=== PATIENT | female | born 1970 | race Caucasian/White ===

== ENCOUNTER 2023-08-15 12:09 | Outpatient (CLI) | payer MEDICAID, SELFPAY | END 2023-08-15 12:10 | disposition home or self-care (01) | PROVIDERS: PCP Orthopaedic Surgery; Visit Provider Family Medicine | DX: R20.2 Paresthesia of skin (principal) | CPT/HCPCS: 82607; 83036 ==

== ENCOUNTER 2023-09-03 13:24 | Emergency (ER) | payer MEDICAID, SELFPAY ==
[2023-09-03 13:29] VITALS: BP 153/71; PULSE 76; RESP 20; TEMP 36.4; O2SAT 97; BMI 40.9
--- NOTE | 2023-09-03 13:31 | XR_ITS ---
Patient: UNRULY ROSE Facility:?[facility] RIS Patient ID:?[id number] Site Patient ID:?[id number]. Site :?[id number] Study:?XRay-Extremity Left FOOT 3V-09/03/2023 2:39:29 PM Ordering Physician:BALA Final Report: INDICATION: Foot pain. COMPARISON: None. TECHNIQUE: Left foot 3 views. FINDINGS: Mild hallux valgus. Diffuse soft tissue swelling about the mid and forefoot. Mildly displaced fracture at the base of the left 5th metatarsal. No other fractures. Degenerative changes at the IP joints. Normal hindfoot. Small plantar and Achilles spurs. IMPRESSION: 1. Soft tissue swelling about the midfoot. 2. Mildly displaced fracture at the base of the left 5th metatarsal. 3. No other fractures. Dictated by Rey Burger MD @ 09/03/2023 3:28:20 PM Signed by:?Rey Burger MD @09/03/2023 3:28:20 PM (Electronic Signature)
--- NOTE | 2023-09-03 13:32 | ED.GENADULT ---
HPI - General Adult General Chief complaint: Extremity Pain/Injury, Lower Stated complaint: left foot swollen, foot fracture Time Seen by Provider: 09/03/23 13:26 History of Present Illness HPI narrative: Patient is a 53-year-old female was on vacation and injured her left foot, [facility] and given a boot cam walker. The patient was told she had some type of forefoot fracture. I do not have access to that x-ray here. She reports that is been more swollen and painful to walk on with the boot. She has not use crutches. She she has a history of what is described as peripheral neuropathy on her chart, and paresthesias of both feet. She presents to ER for evaluation. She has concerns more swollen and painful. She does report that she thinks her injury happened about 5 weeks ago and she continues to have pain in this area the foot. Related Data Home Medications Medication Instructions Recorded Confirmed albuterol sulfate 90 mcg/actuation inhalation 08/15/23 08/15/23 aerosol inhaler atorvastatin 80 mg tablet 80 mg PO DAILY 08/15/23 08/15/23 cholecalciferol (vitamin D3) 25 25 mcg PO DAILY 08/15/23 08/15/23 mcg (1,000 unit) capsule cyanocobalamin (vitamin B-12) 250 mcg PO 08/15/23 08/15/23 mcg tablet epinephrine 0.3 mg/0.3 mL IM 08/15/23 08/15/23 injection, auto-injector lorazepam 1 mg tablet 1 mg PO BID 08/15/23 08/15/23 omeprazole 20 mg capsule,delayed 20 mg PO DAILY 08/15/23 08/15/23 release quetiapine 50 mg tablet 50 mg PO QPM 08/15/23 08/15/23 trazodone 50 mg tablet mg PO BID 08/15/23 08/15/23 venlafaxine 150 mg 150 mg PO DAILY 08/15/23 08/15/23 capsule,extended release 24 hr Previous Rx's Medication Instructions Recorded pregabalin 25 mg capsule 25 mg PO BID #30 caps 08/15/23 Allergies Allergy/AdvReac Type Severity Reaction Status Date / Time No Known Drug Allergies Allergy Verified 08/15/23 11:39 Review of Systems Status of ROS: Reports: 6 or more systems reviewed and unremarkable except as noted in History and below [facility] Medical History Peripheral neuropathy ?G62.9 - Polyneuropathy, unspecified (ICD-10) Paresthesia of both feet ?R20.2 - Paresthesia of skin (ICD-10) Social History Smoking Status: Current every day smoker How often do you have a drink containing alcohol: monthly or less AUDIT-C Alcohol total score: 1 Non-prescribed substance use: denies use Exam Narrative: Exam Narrative: Objective: Patient's vital signs show elevated blood pressure Her left lower extremity shows no pain in her knee or calf or leg or ankle, she does have pain over proximal 5th metatarsal and some soft tissue swelling over the dorsum of the foot No open wounds noted on the foot Peripheral perfusion is normal. Const: Vital Signs, click to edit/add: Vital Signs - 24 hr 09/03/23 13:29 Temperature 97.6 F Pulse Rate [Pulse Oximeter] 76 Respiratory Rate 20 Blood Pressure [Ri ght Upper Arm] 153/71 H Pulse Oximetry 97 Oxygen Delivery Me thod Room Air Course Vital Signs Vital signs: Initial Vital Signs Temperature 97.6 F 09/03/23 13:29 Temperature Source Temporal Artery Scan 09/03/23 13:29 Pulse Rate 76 09/03/23 13:29 Pulse Rhythm Regular 09/03/23 13:29 Respiratory Rate 20 09/03/23 13:29 Blood Pressure 153/71 H 09/03/23 13:29 Blood Pressure Mean 98 09/03/23 13:29 Blood Pressure Position Sitting 09/03/23 13:29 Pulse Oximetry 97 09/03/23 13:29 Oxygen Delivery Method Room Air 09/03/23 13:29 Vital Signs Temperature 97.6 F 09/03/23 13:29 Pulse Rate 76 09/03/23 13:29 Respiratory Rate 20 09/03/23 13:29 Blood Pressure 153/71 H 09/03/23 13:29 Pulse Oximetry 97 09/03/23 13:29 Oxygen Delivery Method Room Air 09/03/23 13:29 Temperature 97.6 F 09/03/23 13:29 Pulse Rate 76 09/03/23 13:29 Respiratory Rate 20 09/03/23 13:29 Blood Pressure 153/71 H 09/03/23 13:29 Pulse Oximetry 97 09/03/23 13:29 Oxygen Delivery Method Room Air 09/03/23 13:29 Medications Administered Medications: Discontinued Medications Generic Name Dose Route Start Last Admin Trade Name Antolin PRN Reason Stop Dose Admin Ibuprofen 800 mg 09/03/23 13:35 09/03/23 13:41 Ibuprofen 400 Mg Tablet PO 09/03/23 13:36 800 mg ONCE ONE Administration Medical Decision Making MDM Narrative Medical decision making narrative: 53-year-old female with a left forefoot fracture, will check a neck repeat x-ray. I think at this point the patient still needs to be nonweightbearing she can certainly wear the boot for compression and for support, but I think she needs to be on crutches as well. At elevation, ibuprofen, recheck with Ortho in the next few days would be recommended will see if we can set up an appointment for them. Addendum 2:41 p.m.: Patient's x-ray shows a proximal 5th metatarsal fracture, nondisplaced. The patient reports that she actually thinks she hurt her foot about 5 weeks ago. There appears to be a little bit a callus but I a with surprises and more fully healed. She continues to have pain. I think she needs to see Orthopedics to consider other options and probably definitive repair of her fracture. She will be in cam walker banana have her be nonweightbearing use crutches and follow-up with Ortho next 3 days will make an appointment, Advil or Tylenol as needed. And return to the ED if problems or concerns. Discharge Plan Discharge Clinical Impression: Acute foot pain, Closed fracture of fifth metatarsal bone Patient Disposition: Home, Self-Care Condition: Stable Additional Instructions: Ortho appointment scheduled in the next few days, nonweightbearing with your Cam walker on, crutches, elevation, return to ED sooner problems or concerns. DD of a fracture in her foot that needs orthopedic consultation. The number to the orthopedic department is [phone]. Activity Level: No Weight Bearing Discharge Diet: Heart Healthy (2 gm sodium, low fat) Prescriptions: No Action trazodone 50 mg tablet PO BID quetiapine 50 mg tablet 50 mg PO QPM lorazepam 1 mg tablet 1 mg PO BID cyanocobalamin (vitamin B-12) 250 mcg tablet PO venlafaxine 150 mg capsule,extended release 24hr 150 mg PO DAILY atorvastatin 80 mg tablet 80 mg PO DAILY omeprazole 20 mg capsule,delayed release(DR/EC) 20 mg PO DAILY cholecalciferol (vitamin D3) 25 mcg (1,000 unit) capsule 25 mcg PO DAILY epinephrine 0.3 mg/0.3 mL auto-injector IM albuterol sulfate 90 mcg/actuation HFA aerosol inhaler inhalation pregabalin 25 mg capsule 25 mg PO BID Qty: 30 2RF Rx Instructions: 25 mb BID X 3 days, 50 mg BID X 3 days, 75 mg BID Follow Up/Referrals: Huey James MD [Primary Care Provider] - Stand Alone Forms: [facility] Info Instructions
[2023-09-03] MEDS: IBUPROFEN 400 MG TABLET 800 MG PO (13:41)
== END 2023-09-03 14:48 | disposition home or self-care (01) ==
PROVIDERS: Emergency Provider Family Medicine; PCP Orthopaedic Surgery
DX: S92.515A Nondisplaced fracture of proximal phalanx of left lesser toe(s), initial encounter for closed fracture (principal)
CPT/HCPCS: 73630; 99283; 99284; A9270

== ENCOUNTER 2024-02-11 06:01 | Emergency (ER) | payer OTHER, SELFPAY ==
[2024-02-11 06:10] VITALS: BP 149/86; PULSE 99; RESP 18; TEMP 37.1; O2SAT 95; BMI 40.9
--- NOTE | 2024-02-11 06:23 | ED_ITS ---
HPI - General Adult General Chief complaint: Nausea/Vomiting Stated complaint: Vomiting Time Seen by Provider: 02/11/24 06:23 History of Present Illness HPI narrative: 1700 02/10/24 started vomiting with diarrhea this AM. no abd pain prior to vomiting. denies any known sick contacts. did take an anti?nausea med at home something that starts with an M 53-year-old woman presenting to the emergency department who has been having vomiting and diarrhea over the last 12 hours. No known exposures or questionable ingestions. Is now having some abdominal pain which she would associate with the vomiting. Sounds like may have taken some meclizine an attempt to stop the nausea. She has not noticed any hematemesis, melena, hematochezia. Related Data Home Medications ?Medication ?Instructions ?Recorded ?Confirmed cholecalciferol (vitamin D3) 25 25 mcg PO DAILY 08/15/23 02/11/24 mcg (1,000 unit) capsule epinephrine 0.3 mg/0.3 mL 0.3 ml IM DIRECTED 08/15/23 02/11/24 injection, auto-injector lorazepam 1 mg tablet 1 mg PO BID 08/15/23 02/11/24 quetiapine 50 mg tablet 50 mg PO QPM 08/15/23 02/11/24 trazodone 50 mg tablet 50 mg PO BID 08/15/23 02/11/24 venlafaxine 150 mg 150 mg PO DAILY 08/15/23 02/11/24 capsule,extended release 24 hr Allergies Allergy/AdvReac Type Severity Reaction Status Date / Time aspirin Allergy Mild Hives Verified 02/11/24 06:09 bee venom protein (honey bee) Allergy Mild Verified 02/11/24 06:09 Penicillins Allergy Mild Hives Verified 02/11/24 06:09 morphine AdvReac Severe Hallucinati Verified 02/11/24 06:09 ng Review of Systems Status of ROS: Reports: 6 or more systems reviewed and unremarkable except as noted in History and below [facility] Medical History Peripheral neuropathy ?G62.9 - Polyneuropathy, unspecified (ICD-10) Paresthesia of both feet ?R20.2 - Paresthesia of skin (ICD-10) Social History Smoking Status: Current every day smoker How often do you have a drink containing alcohol: monthly or less AUDIT-C Alcohol total score: 1 Non-prescribed substance use: denies use Exam Narrative: Exam Narrative: Pleasant. Looks uncomfortable. Emesis bag nearby. Oropharynx is sticky. No erythema. Lungs are clear. Heart in elevated rate regular rhythm. Trace systolic murmur. Reportedly this is not new. Abdomen is overweight soft and a tender along the upper abdomen/rib margin generally. No masses appreciated. Extremities are well perfused without edema. Const: Vital Signs, click to edit/add: Vital Signs - 24 hr 02/11/24 06:10 02/11/24 08:44 Temperature 98.8 F 98.4 F Pulse Rate [Pulse Oximeter] 99 88 Respiratory Rate 18 20 Blood Pressure [Ri t Upper Arm] 149/86 H 140/84 H Pulse Oximetry 95 98 Oxygen Delivery Me thod Room Air Room Air Documenting provider has reviewed patient's vital signs: yes Course Vital Signs Vital signs: Initial Vital Signs Temperature 98.8 F 02/11/24 06:10 Temperature Source Temporal Artery Scan 02/11/24 06:10 Pulse Rate 99 02/11/24 06:10 Respiratory Rate 18 02/11/24 06:10 Blood Pressure 149/86 H 02/11/24 06:10 Blood Pressure Mean 107 H 02/11/24 06:10 Blood Pressure Position Sitting 02/11/24 06:10 Pulse Oximetry 95 02/11/24 06:10 Oxygen Delivery Method Room Air 02/11/24 06:10 Vital Signs Temperature 98.8 F 02/11/24 06:10 Pulse Rate 99 02/11/24 06:10 Respiratory Rate 18 02/11/24 06:10 Blood Pressure 149/86 H 02/11/24 06:10 Pulse Oximetry 95 02/11/24 06:10 Oxygen Delivery Method Room Air 02/11/24 06:10 Temperature 98.4 F 02/11/24 08:44 Pulse Rate 88 02/11/24 08:44 Respiratory Rate 20 02/11/24 08:44 Blood Pressure 140/84 H 02/11/24 08:44 Pulse Oximetry 98 02/11/24 08:44 Oxygen Delivery Method Room Air 02/11/24 08:44 Medications Administered Medications: Discontinued Medications Generic Name Dose Route Start Last Admin Trade Name Freq PRN Reason Stop Dose Admin Sodium Chloride 1,000 mls @ 1,000 mls/hr 02/11/24 06:29 02/11/24 08:09 0.9 % Sodium Chloride 1000 Ml IV 02/11/24 07:28 Infused .Q1H ONE Infusion Sodium Chloride 1,000 mls @ 1,000 mls/hr 02/11/24 07:06 02/11/24 09:07 0.9 % Sodium Chloride 1000 Ml IV 02/11/24 08:05 Infused .Q1H ONE Infusion Ondansetron HCl 4 mg 02/11/24 06:29 02/11/24 06:35 Ondansetron 2 Mg/Ml Inj IVP 02/11/24 06:30 4 mg ONCE ONE Administration Medical Decision Making MDM Narrative Medical decision making narrative: Would hydrate with IV fluids. Antiemetic. Check labs particularly chemistries given duration of symptoms. I do not think any imaging is necessary at this point. Does sound to be an infectious process nonspecific viral? Could be COVID or influenza variant. Unlikely bowel obstruction. I would anticipate 2 L of IV fluids given copious/quantity vomiting diarrhea. Labs ultimately reassuring. Transaminases are mildly elevated which I think is probably related to fatty liver although could be bumped in vomiting illness. Kim does note that has had elevated transaminases before. Overall improved. Tolerating oral liquid intake. See patient discharge plan for further discussion Medical Records Medical records reviewed: Yes I reviewed the patient's medical records Lab Data Lab results reviewed: Yes I reviewed the patient's lab results Labs: Lab Results 02/11/24 Range/Units 06:40 WBC 9.95 (4.50-11.00) K/uL RBC 4.83 (4.00-5.20) m/uL Hgb 14.3 (12.0-16.0) gm/dL Hct 43.8 (33.0-51.0) % MCV 91 (80-100) fL MCH 30 (26-34) pg MCHC 33 (32-36) gm/dL RDW Coeff of Disha 13.0 (11.5-15.5) % Plt Count 205 (140-440) K/uL Neut % (Auto) 91.3 H (42.0-72.0) % Lymph % (Auto) 5.4 L (20-44) % [place] % (Auto) 2.5 (0.0-11.0) % Eos % (Auto) 0.4 (0.0-7.0) % Baso % (Auto) 0.2 (0.0-3.0) % Neut # (Auto) 9.10 H (1.7-7.0) K/uL Lymph # (Auto) 0.50 L (0.90-2.90) K/uL [place] # (Auto) 0.20 (0.00-0.90) K/UL Eos # (Auto) 0.04 (0.00-0.50) K/uL Baso # (Auto) 0.02 (0.00-0.30) K/uL Abs Immat Gran (auto) 0.02 (0.00-0.30) K/uL Imm/Tot Granulo (auto) 0.2 % Sodium 138 (135-149) mmol/L Potassium 4.0 (3.6-5.1) mmol/L Chloride 102 (96-114) mmol/L Carbon Dioxide 24 (20-32) mmol/L Anion Gap 12 (7-15) mEq/L BUN 16 (7-30) mg/dL Creatinine 0.5 (0.5-1.5) mg/dL Estimated Creat Clear 109.78 Estimated GFR 111 ml/min Glucose 148 H (60-115) mg/dL Calcium 9.6 (8.4-10.6) mg/dL Total Bilirubin 0.7 (0.1-1.5) mg/dL Direct Bilirubin 0.3 (0.0-0.5) mg/dL AST 61 H (12-35) U/L ALT 37 H (4-35) U/L Alkaline Phosphatase 61 (40-150) U/L Total Protein 8.6 H (6.0-8.3) g/dL Albumin 4.8 (3.3-5.0) g/dL SARS-CoV-2 (PCR) Negative SARS-CoV-2 (Negative) Influenza Type A (PCR) Negative PCR FLU A (Negative) Influenza Type B (PCR) Negative PCR FLU B (Negative) Discharge Plan Discharge Clinical Impression: Vomiting, Diarrhea Patient Disposition: Home w/ Parent or Adult Condition: Improved Additional Instructions: Focus on hydration. Slow advance of diet over the next 24-36 hours. Diluted juices, soup broth, crackers, rice, toast. Return for marked increase in persistent pain, intractable vomiting or diarrhea, associated fever. Zofran from [facility] for nausea/vomiting. As long as you are not experiencing a fever or seeing blood in your stool you might try loperamide for diarrhea if needed. COVID and influenza was negative Prescriptions: No Action trazodone 50 mg tablet 50 mg PO BID quetiapine 50 mg tablet 50 mg PO QPM lorazepam 1 mg tablet 1 mg PO BID venlafaxine 150 mg capsule,extended release 24hr 150 mg PO DAILY cholecalciferol (vitamin D3) 25 mcg (1,000 unit) capsule 25 mcg PO DAILY epinephrine 0.3 mg/0.3 mL auto-injector 0.3 ml IM DIRECTED Follow Up/Referrals: Huey James MD [Staff Physician] - Stand Alone Forms: [employer] Info Instructions
[2024-02-11] MEDS: ONDANSETRON 2 MG/ML inj 4 MG IVP (06:35)
[2024-02-11] MEDS: 0.9 % SODIUM CHLORIDE 1000 ml 1,000 ML IV ×2 (06:35→08:10)
--- OUTSIDE RECORDS SUMMARY | 2024-02-11 06:40 | XMS_ITS | Encounter Summary ---
Author Organization [facility] Address [address] [address] Phone Care Team Providers Care Timber Sizer Name Role Phone Alisa Mi MD Primary Care Provider [phone] PATCHER, INDUSTRI[employer] SERVICER SUPERVISOR Unavailable Suzie España ROAD PATCHER, INDUSTRIAL GAS SERVICER SUPERVISOR Unavailable + Della Ruiz PA-C Unavailable [phone] PATCHER, INDUSTRIAL GAS SERVICER SUPERVISOR Unavailable [phone] Latrice Chin PA-C Unavailable [phone] Rene Levine MD Unavailable [phone] Elsewhere, Pcp Primary Care Provider Unavailabl e Encounter Details Date Type Department Care Team ([facility] Contact Info) Description 02/20/2014 Telephone Call [facility] [address] [place] [address] Adam Ness MD [address] [place] [address] Social History Tobacco Use Types Packs/Day Years Used Date Smoking Tobacco: Every Day Cigarettes 0.5 2 Smokeless Tobacco: Never Comments:Enrolled in Tobacco -free Services Alcohol Use Standard Drinks/Week Comments Yes 0 (1 standard drink = 0.6 oz pur e alcohol) Rare Sex and Gender Information Value Date Recorded Sex Assigned at Not on file Gender Identity Not on file Sexual Orientation Not on file Job Start Date Occupation Industry Not on file Not on file Not on file documented as of this encounter Functional Status Functional Status Response Date of Assess ment Patient's Vision Adequate to Safely Complete Daily Activities No 12/11/2013 Patient's Memory Adequate to Safely Complete Daily Activities Yes 12/11/2013 Cognitive Status Response Date of Assessm ent Patient's Judgment Adequate to Safely Complete Daily Activities No 12/11/2013 documented as of this encounter Progress Notes * Adam Ness MD - 02/21/2014 7:18 AM CDT [facility] Patient Name: KIM SCHULTZ Date of Service: 02/20/2014 : 1970 Age: 43Y Sex: F Site MRN: Patient Loc/Room #: / Provider: Adam Ness MD, Urology TELEPHONE CALL SITE: Kim underwent a CT scan with and without IV contrast for further investigation of gross hematuria. This study was normal with no evidence of renal mass or suspicious urologic findings. The kidneys had prompt bilateral function. There was no evidence of hydronephrosis. No filling defect was described or identified. She has been called and informed of this result. Her hematuria workup is negative. Adam Ness MD [facility] Urology cc: Alisa Mi MD /[facility] Job ID: [id number] / Document ID: [id number] documented in this encounter Plan of Treatment Not on file documented as of this encounter Visit Diagnoses Not on filedocumented in this encounter Additional Health Concerns Infection Onset Date Last Indicated Resolved Time R/O Enteric Pathogens 03/01/2022 03/01/20222021 11:06 PM DRENCHER R/O C. Diff 03/01/2022 03/01/2022 03/29/2022 11:0 6 PM DRENCHER documented as of this encounter Care Teams Timber Sizer Relationship Specialty Start Date End Date Alisa Mi MD [address] [place] [address] [phone] PCP - General Family Medicine 03/23/13 09/23/22 Maegan Melgar, ROAD PATCHER, INDUSTRIAL GAS SERVICER SUPERVISOR [address] [place] [address] [phone] PCP - PC Team Family Medicine 03/19/16 02/28/18 Suzie España, ROAD PATCHER, INDUSTRIAL GAS SERVICER SUPERVISOR [address] [place] [phone] PCP - PC Team Family Medicine 03/01/18 09/25/18 Della Ruiz PA-C [address] [place] [phone] PCP - PC Team Family Medicine 09/26/18 06/13/21 Sandra Munguia, ROAD PATCHER, INDUSTRIAL GAS SERVICER SUPERVISOR [address] [place] [phone] PCP - PC Team Family Medicine 06/14/21 Elsewhere, Pcp PCP - General 09/24/22 Latrice Chin PA-C [address] [place] [phone] Consulting Provider Gastroenterology 07/28/21 Rene Levine MD [address] [place] [address] Physician Gastroenterology 07/28/21 documented as of this encounter
--- OUTSIDE RECORDS SUMMARY | 2024-02-11 06:40 | XMS_ITS | Clinical Summary ---
Author Organization [facility] Address [place], [place] [address] Care Team Providers Care General Manager Land Department Name Role Phone Liana Rodriguez LACE ROLLER OPERATOR Unavailable Williams Parson RN Unavailable Ashley Baig DO Primary Care Provider [phone] Allergies Active Allergy Reactions Criticality Noted Date Comments Aspirin Hives 04/03/2007 Bee Pollen Anaphylaxis High 10/08/2011 Penicillins Hives 04/03/2007 Venom-Honey Bee Anaphylaxis High 03/15/2007 Medications Medication Sig Dispensed Refills Start Date End Date Status QUEtiapine (SEROQUEL) 25 mg tablet 09/07/2022 Active traZODone (DESYREL) 50 mg tablet 09/08/2022 Active venlafaxine (EFFEXOR XR) 150 mg Extended-Release capsule 09/02/2022 Active atorvastatin (LIPITOR) 80 mg tabletIndications:M ixed hyperlipidemia Take 1 Tablet (80 mg) by mouth at bedtime. 100 Tablet 3 05/30/2023 Active cholecalciferol (VITAMIN D3) 1,000 unit capsuleIndications: Vitamin D deficiency Take 1 Capsule (25 mcg) by mouth once daily. 100 Capsule 3 05/30/2023 Active cyanocobalamin (VITAMIN B12) 1,000 mcg tabletIndications:B 12 deficiency Take 1 Tablet (1,000 mcg) by mouth once daily. 100 Tablet 3 05/30/2023 Active albuterol HFA (PRO-AIR; VENTOLIN; PROVENTIL) 90 mcg/actuation inhalerIndications: Mild reactive airways disease, unspecified whether persistent Inhale 1-2 Puffs by mouth every 4 hours if needed for Shortness Of Breath. 1 Each 3 05/30/2023 Active EPINEPHrine (EPIPEN) 0.3 mg/0.3 mL auto-injectorIndica tions:Allergy to honey bee venom Inject 0.3 mg intramuscular one time if needed for Anaphylaxis. 4 Each 1 05/30/2023 Active pregabalin (LYRICA) 25 mg capsule Take 25 mg by mouth two times daily. 08/26/2023 Active naproxen (NAPROSYN) 500 mg tabletIndications:C losed fracture of base of fifth metatarsal bone of left foot Take 1 Tablet (500 mg) by mouth every 12 hours if needed for Pain. 30 Tablet 09/09/2023 Active Active Problems Problem Noted Date Diagnosed Date Breast hypertrophy in female 12/21/2023 S/P trigger finger release 10/01/2022 Obesity, morbid 09/24/2022 B12 deficiency 05/07/2020 09/24/2022 Mild mitral regurgitation 05/09/20192022 Pulmonary nodules 05/10/2018 09/24/2022 Overview (09/24/2022): Left subpleural nodules x 3. Seen incidentally on spiral CT 04/22/2018. Recheck in 1 year. History of bladder cancer 03/23/20182022 Overview (09/24/2022): 11/04/2017 H/o bladder cancer- due in March for repeat cysto 04/21/2017 Urology Kim is here for followup cysto for surveillance of her known history of bladder cancer (this dates back to 2007 - small, papillary low grade TCC). ?? Mixed hyperlipidemia 05/13/2017 09/24/2022 Generalized anxiety disorder 12/05/201409/2022 Insomnia 08/10/2014 09/24/2022 Tobacco use disorder 08/10/2014 09/24/2022 Lactose intolerance 11/07/2013 09/24/2022 Restless leg syndrome 05/12/2007 09/24/2022 Overview (09/24/2022): well controlled IMO Update 03/02 Encounters Date Type Department Care Team Description 12/22/2023 Orders Only [facility] [address] [place] [address] Ashley Baig DO <No scans attached> 12/21/2023 8:10 AM CDT Office Visit [facility] [address] [place] [address] Ashley Baig DO Establish Care 12/21/2023 Travel 12/07/2023 1:30 PM CDT Office Visit [facility] [address] [place] [address] Glenn Honeycutt DPM Follow Up (Left foot, CT results) 12/07/2023 Travel 12/05/2023 1:30 PM CDT Ancillary Procedure [facility] [address] [place] [address] 12/05/2023 Travel 11/15/2023 Telephone [facility] [address] [place] [address] Ashley Baig DO Questions (Consideration by Dr. Baig to accepting patient for primary care) from Last 3 Months Immunizations Name Administration Dates Next Due COVID-19 vaccine (Moderna 10 0mcg/0.5mL) PF, MDV 05/05/2021,07/12/2020,06/14/2020 DT (Age < 7 years) 05/23/2001 Influenza Virus, Unspecified 03/16/2019,03/16/20 12 Influenza, IIV4 06/08/2022,05/30/2020,03/14/2019 Pneumococcal Conj 20-valent (Prevnar 20) 023 Pneumococcal Poly,23-Valent (Pneumovax) 05/13/20 17 Td (Age >=7 Years) 12/26/1995 Td, Preservative Free (age >= 7 Years) 2 Tdap 12/09/2011 Social History Tobacco Use Types Packs/Day Years Used Date Smoking Tobacco: Former Cigarettes 2 009 - 06/27/2023 Smokeless Tobacco: Never Tobacco Cessation:Counseling Given: Not Answered Comments:has had like 5 cigarettes in last 3 weeks Alcohol Use Standard Drinks/Week Comments Yes 0 (1 standard drink = 0.6 oz pur e alcohol) Rare PHQ-2 Answer Date Recorded PHQ-2 TOTAL SCORE 1 05/30/2023 Social Connections Answer Date Recorded Frequency of Communication with Friends and Fami ly 0 09/01/2023 Financial Resource Strain Answer Date R ecorded Difficulty of Paying Living Expenses 3 09/01/2023 Difficulty of Paying Living Expenses Not on file 09/01/2023 Food Insecurity Answer Date Recorded Worried About Running Out of Food in the Last Ye ar 1 09/01/2023 Transportation Needs Answer Date Record ed Lack of Transportation (Medical) 1 09/01/2023 Housing Stability Answer Date Recorded Unable to Pay for Housing in the Last Year 1 09/01/2023 Sex and Gender Information Value Date Recorded Sex Assigned at Not on file Gender Identity Not on file Sexual Orientation Not on file Obstetrics History Last Filed Vital Signs Vital Sign Reading Time Taken Comments Blood Pressure 124/77 12/21/2023 8:06 AM CDT Pulse 69 12/21/2023 8:06 AM CDT Temperature 36.8 ??C (98.2 ??F) 09/16/2022 6:54 AM CD T Respiratory Rate 16 09/16/2022 8:10 AM CDT Oxygen Saturation 95% 12/21/2023 8:06 AM CDT Inhaled Oxygen Concentration - - Weight 110.7 kg (244 lb) 12/21/2023 8:06 AM CDT Height 160 cm (5' 3) 07/21/2023 8:00 AM AXMINSTER RUG SETTER Body Mass Index 43.22 07/21/2023 8:00 AM AXMINSTER RUG SETTER Plan of Treatment Upcoming Encounters Date Type Department Care Team (Late st Contact Info) Description 03/21/2024 3:30 PM CDT Office Visit [facility] [address] [place] [address] Ashley Baig DO [address] [place] [address] Health Maintenance Due Date Last Done Comments Zoster (shingles) series for age 50+ (1 of 2) 2018 Mammogram for age 45-75 05/07/2020 05/07/20 19 (Verified in Care Everywhere or Patient Record) COVID-19 vaccine series (2022- season) 2024 03/17/2022, 05/05/2021, 07/12/2020, Additional history exists Influenza for age 50-64 01/22/2024 06/08/19 23, 05/30/2020, 03/16/2019, Additional history exists Depression screening for age 12+ 05/30/2024 05/30/2023 BMI (ht and wt on same day) for age 18+ 07/20/2024 07/21/2023, 06/23/2023, 05/30/2023, Additional history exists Lipids for age 45-75 05/30/2028 05/30/2023, 05/30/2023, 05/19/2020 (Verified in Care Everywhere or Patient Record) Colonoscopy through age 75 08/22/203108/21 (Verified in Care Everywhere or Patient Record) Tetanus booster 03/17/2032 03/17/2022, 11/20, 12/26/1995 Pap test for age 21-65 Discontinued 2 (Verified in Care Everywhere or Patient Record) Tdap Completed 12/09/2011 Hepatitis C screening for age 18-79 Addressed 12/20/2012 (Verified in Care Everywhere or Patient Record) Overridden with the intention of not completing the topic HIV for age 15-65 Addressed 02/07/2018 (Ve rified in Care Everywhere or Patient Record) Overridden with the intention of not completing the topic Pneumococcal series for age 6-64 Aged Out 06/08/2022, 05/13/2017 No longer eligibl e based on patient's age to complete this topic Procedures Procedure Name Priority Date/Time Associated Diagnosis Comments THYROPEROXIDASE ANTIBODY Add On 12/21/2023 9:15 AM CDT Weight gain T3,TOTAL Routine 12/21/2023 9:15 AM CDT Weight gain T4,FREE Routine 12/21/2023 9:15 AM CDT Weight gain TSH Routine 12/21/2023 9:15 AM CDT Weight gain CT FOOT LEFT WO Routine 12/05/2023 2:04 PM CDT Closed fracture of base of fifth metatarsal bone of left foot at metaphyseal-diaphysea l junction with delayed healing, subsequent encounter LIPID PANEL W REFLEX MEASURED LDL Routine 05/30/2023 4:35 PM AXMINSTER RUG SETTER Mixed hyperlipidemia from Last 3 Months or Most Recently Relevant to Health Maintenance Results * TSH (12/21/2023 9:15 AM CDT) TSH 3.58 0.27 - 4.20 uIU/mL 12/21/2023 6:07 PM CDT [facility] Blood BLOOD SPECIMEN / Unknown Butterfly / Unknown 12/21/2023 9:15 AM CDT 12/21/2023 9:16 AM CDT Narrative [facility] - 12/21/2023 6:07 PM CDT In Adults, TSH values between 5.00 and 10.00 uIU/ml do not necessarily indicate the presence of Hypothyroidism. Correlation with clinical findings such as presence of goiter and/or Thyroperoxidase (TPO) Antibody may be helpful. For more information please refer to SANTOSH 2004; 291: 228-238. Ashley Baig DO CHEMISTRY [facility] [address] [place] [address], * THYROPEROXIDASE ANTIBODY (12/21/2023 9:15 AM CDT) THYROPEROXIDASE LAURA 14.80 <34.00 IU/mL 12/22/2023 11:24 AM CDT [facility] Blood BLOOD SPECIMEN / Unknown Butterfly / Unknown 12/21/2023 9:15 AM CDT 12/21/2023 9:16 AM CDT Narrative [facility] - 12/22/2023 11:24 AM CDT Biotin supplements may cause clinically significant interference for this test assay. ??If interference is suspected, it is strongly recommended that biotin is discontinued for at least one week prior to retesting. Ashley Baig DO SEND OUTS Performing Organization Address [facility] Co de Phone Number [facility] [address] [place] [address], * T3,TOTAL (12/21/2023 9:15 AM CDT) T3,TOTAL 110 85 - 202 ng/dL 12/21/2023 6:07 PM CDT [facility] Blood BLOOD SPECIMEN / Unknown Butterfly / Unknown 12/21/2023 9:15 AM CDT 12/21/2023 9:16 AM CDT Ashley Baig DO CHEMISTRY Performing Organization Address [facility] Co de Phone Number [facility] [address] [place] [address], [place] * T4,FREE (12/21/2023 9:15 AM CDT) T4,FREE 0.97 0.93 - 1.70 ng/dL 12/21/2023 6:07 PM CDT [facility] Blood BLOOD SPECIMEN / Unknown Butterfly / Unknown 12/21/2023 9:15 AM CDT 12/21/2023 9:16 AM CDT Ashley Baig DO CHEMISTRY Performing Organization Address [facility] Co de Phone Number [facility] [address] [place] [address], [place] * CT FOOT LEFT WO (12/05/2023 2:04 PM CDT) Anatomical Region Laterality Modality FOOT L Computed Tomogra phy 12/06/2023 9:11 AM CDT Impressions 12/06/2023 9:11 AM CDT 1. 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 Less than half of the fracture surface area is united. 2. Minimal hypertrophic change at the 4th and 5th TMT joint. Please note that all CT scans at this facility use dose modulation, iterative reconstruction, and/or weight-based dosing when appropriate to reduce radiation dose to as low as reasonably achievable. Dictated by De Manzanares MD @ 12/06/2023 9:11:29 AM (Electronically Signed) Narrative 12/06/2023 9:11 AM CDT For Patients: ??As a result of the Cures Act, medical imaging exams and procedure reports are released immediately into your electronic medical record. ??You may view this report before your referring provider. ??If you have questions, please contact your health care provider. EXAM: CT OF THE LEFT FOOT, WITHOUT CONTRAST CLINICAL INDICATION: Follow-up 5th metatarsal fracture with delayed healing. COMPARISON PLAIN FILMS: 11/03/2023, 10/05/2023 and 09/01/2023. COMPARISON CROSS-SECTIONAL IMAGING STUDIES: None. TECHNICAL: Non-contrast CT of the foot with axial images. Sagittal oblique and coronal oblique images were created. ?? FINDINGS: OSSEOUS STRUCTURES: Chronic incompletely united fracture of the metadiaphysis of the proximal 5th metatarsal. There is solid osseous bridging at the dorsal medial fracture margin. There is less than half of the fracture surface area is united. Well- circumscribed fracture lucency with peripheral osteophytic lipping at the plantar and lateral margin. No additional fractures are evident. No evidence for avascular necrosis. JOINT SPACES: Minimal hypertrophic changes at the 4th and 5th TMT joint. TENDONS AND MUSCLES: The flexor and extensor tendons are intact. No muscle atrophy or hematoma. SOFT TISSUES: No soft tissue edema, fluid collection or hematoma. Procedure Note De Manzanares MD - 12/06/2023 For Patients: As a result of the Cures Act, medical imagingexams and procedure reports are released immediately into your electronicmedical record. You may view this report before your referring provider.If you have questions, please contact your health care provider. EXAM: CT OF THE LEFT FOOT, WITHOUT CONTRAST CLINICAL INDICATION: Follow-up 5th metatarsal fracture with delayed healing. COMPARISON PLAIN FILMS: 11/03/2023, 10/05/2023 and 09/01/2023. COMPARISON CROSS-SECTIONAL IMAGING STUDIES: None. TECHNICAL: Non-contrast CT of the foot with axial images. Sagittal oblique andcoronal oblique images were created. FINDINGS: OSSEOUS STRUCTURES: Chronic incompletely united fracture of the metadiaphysis of the [id number] metatarsal. There is solid osseous bridging at the dorsal medialfracture margin. There is less than half of the fracture surface area isunited. Well- circumscribed fracture lucency with peripheral osteophyticlipping at the plantar and lateral margin. No additional fractures areevident. No evidence for avascular necrosis. JOINT SPACES: Minimal hypertrophic changes at the 4th and 5th TMT joint. TENDONS AND MUSCLES: The flexor and extensor tendons are intact. No muscle atrophy orhematoma. SOFT TISSUES: No soft tissue edema, fluid collection or hematoma. IMPRESSION: 1. 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 2. Minimal hypertrophic change at the 4th and 5th TMT joint. Please note that all CT scans at this facility use dose modulation,iterative reconstruction, and/or weight-based dosing when appropriate toreduce radiation dose to as low as reasonably achievable. Dictated by De Manzanares MD @ 12/06/2023 9:11:29 AM (Electronically Signed) Glenn Honeycutt DPM CT * (ABNORMAL) LIPID PANEL W REFLEX MEASURED LDL (05/30/2023 4:35 PM AXMINSTER RUG SETTER) CHOLESTEROL,TOTAL 304(H) 100 - 199 mg/dL 05/31/2023 1:56 PM AXMINSTER RUG SETTER [facility] Comment: Cholesterol, Total Reference Ranges Desirable <200 mg/dL Borderline 200-239 mg/dL High >=240 mg/dL TRIGLYCERIDES 435(H) <150 mg/dL 05/31/2023 1:56 PM AXMINSTER RUG SETTER [facility] HDL CHOLESTEROL 45 >40 mg/dL 1:56 PM AXMINSTER RUG SETTER [facility] NON-HDL CHOLESTEROL 259(H) <145 mg/dl 05/31/2023 1:56 PM AXMINSTER RUG SETTER [facility] CHOL/HDL RATIO 6.76(H) <4.50 05/31/2023 1:56 PM AXMINSTER RUG SETTER [facility] LDL CHOLESTEROL 1:56 PM AXMINSTER RUG SETTER [facility] Comment:Invalid LDL when Tri g >400. VLDL CHOLESTEROL COMMENT 05/31/2023 1:56 PM AXMINSTER RUG SETTER [facility] Comment:Unable to calculate VLDL. PROVIDER ORDERED STATUS RANDOM 05/31/2023 1:56 PM AXMINSTER RUG SETTER [facility] Blood BLOOD SPECIMEN / Unknown Butterfly / Unknown 05/30/2023 4:35 PM AXMINSTER RUG SETTER 05/30/2023 4:37 PM AXMINSTER RUG SETTER Kiley Rios MD CHEMISTRY [facility] [address] [place] [address], from Last 3 Months or Most Recently Relevant to Health Maintenance Advance Directives * Full Code (Latest Code Status on File) Date Activated Date Inactivated Comments 09/16/2022 6:24 AM 09/16/2022 10:31 AM Question Answer Comments Code Status Discussion: Reviewed Preferences Care Teams General Manager Land Department Relationship Specialty Start Date End Date Ashley Baig DO [address] [place] [id number] PCP - General Family Practice 11/21/23 Liana Rodriguez LACE ROLLER OPERATOR [address] [place] [address] Nurse Practitioner - Family 07/06/23 Williams Parson, RN [address] [place] [address] Registered Nurse 07/06/23
--- OUTSIDE RECORDS SUMMARY | 2024-02-11 06:40 | XMS_ITS | Encounter Summary ---
Author Organization [facility] Address [address] [address] Phone Care Team Providers Care Special Education Director Name Role Phone Alisa Mi MD Primary Care Provider [phone] Sandra Munguia APRN, HEALTHCARE CONSULTING MANAGER Unavailable [phone] Latrice Chin PA-C Unavailable [phone] Rene Levine MD Unavailable [phone] Elsewhere, Pcp Primary Care Provider Unavailabl e Reason for Visit * Reason Comments Refill Request Encounter Details Date Type Department Care Team (Late st Contact Info) Description 12/15/[address] [facility] [address] [place] [address] Latrice Chin PA-C [address] [place] [address] Refill Request Social History Tobacco Use Types Packs/Day Years Used Date Smoking Tobacco: Every Day Cigarettes 1 13.8 Started: 05/04/2010 Smokeless Tobacco: Never Comments:Enrolled in Tobacco -free Services Alcohol Use Standard Drinks/Week Comments Yes 0 (1 standard drink = 0.6 oz pur e alcohol) Rare PHQ-2 Answer Date Recorded PHQ-2 Total 0 07/10/2021 Sex and Gender Information Value Date Recorded Sex Assigned at Not on file Gender Identity Not on file Sexual Orientation Not on file Job Start Date Occupation Industry Not on file Not on file Not on file COVID-19 Exposure Response Date Recorded In the last 10 days, have beckie u been in contact with someone who was confirmed or suspected to have Coronavirus/COVID-19? No / Unsure 11/16/2021 7:33 AM CDT documented as of this encounter Functional Status Functional Status Response Date of Assess ment Patient's Vision Adequate to Safely Complete Daily Activities Yes 03/12/2019 Patient's Memory Adequate to Safely Complete Daily Activities Yes 11/08/2016 Cognitive Status Response Date of Assessm ent Patient's Judgment Adequate to Safely Complete Daily Activities Yes 03/12/2019 documented as of this encounter Plan of Treatment Not on file documented as of this encounter Visit Diagnoses Not on filedocumented in this encounter Additional Health Concerns Infection Onset Date Last Indicated Resolved Time R/O Enteric Pathogens 03/01/2022 03/01/20222021 11:06 PM CLINICAL ACADEMIC ALLERGIST R/O C. Diff 03/01/2022 03/01/2022 03/29/2022 11:0 6 PM CLINICAL ACADEMIC ALLERGIST documented as of this encounter Care Teams Special Education Director Relationship Specialty Start Date End Date Alisa Mi MD [address] [place] [phone] PCP - General Family Medicine 03/23/13 09/23/22 Sandra Munguia APRN, HEALTHCARE CONSULTING MANAGER [address] [place] [address] PCP - PC Team Family Medicine 06/14/21 Elsewhere, Pcp PCP - General 09/24/22 Latrice Chin PAGoldieC [address] [place] [phone] Consulting Provider Gastroenterology 07/28/21 Rene Levine MD [address] [place] [address] Physician Gastroenterology 07/28/21 documented as of this encounter
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
[2024-02-11 07:00] LABS: Basophils Absolute Auto 0.02 K/uL (0.00-0.30); Basophils Percent Auto 0.2 % (0.0-3.0); Eosinophils Absolute Auto 0.04 K/uL (0.00-0.50); Eosinophils Percent Auto 0.4 % (0.0-7.0); Hematocrit 43.8 % (33.0-51.0); Hemoglobin* 14.3 gm/dL (12.0-16.0); Immature Granulocytes Abs Auto 0.02 K/uL (0.00-0.30); Immature Granulocytes Pct Auto 0.2 %; Lymphocytes Percent Auto 5.4 % (20-44); Mean Corpuscular HGB Conc 33 gm/dL (32-36); Mean Corpuscular Hemoglobin 30 pg (26-34); Mean Corpuscular Volume 91 fL (80-100); Monocytes Percent Auto 2.5 % (0.0-11.0); Neutrophils Percent Auto 91.3 % (42.0-72.0); Platelet Count* 205 K/uL (140-440); Red Blood Count 4.83 m/uL (4.00-5.20); White Blood Count* 9.95 K/uL (4.50-11.00)
[2024-02-11 07:03] LABS: Slide Review Reflex No
[2024-02-11 07:13] LABS: Albumin* 4.8 g/dL (3.3-5.0); Chloride* 102 mmol/L (96-114); Sodium* 138 mmol/L (135-149)
[2024-02-11 07:15] LABS: Creatinine* 0.5 mg/dL (0.5-1.5); Est. Creatinine Clearance* 109.78; Estimated Glomerular Filt Rate 111 ml/min
[2024-02-11 07:16] LABS: Alanine Aminotransferase* 37 U/L (4-35); Alkaline Phosphatase* 61 U/L (40-150); Aspartate Amino Transferase* 61 U/L (12-35); Bilirubin Direct* 0.3 mg/dL (0.0-0.5); Bilirubin Total* 0.7 mg/dL (0.1-1.5); Blood Urea Nitrogen* 16 mg/dL (7-30); Calcium* 9.6 mg/dL (8.4-10.6); Carbon Dioxide* 24 mmol/L (20-32); Glucose* 148 mg/dL (60-115); Total Protein* 8.6 g/dL (6.0-8.3)
[2024-02-11 07:21] LABS: Anion Gap 12 mEq/L (7-15)
[2024-02-11 08:44] VITALS: BP 140/84; PULSE 88; RESP 20; TEMP 36.9; O2SAT 98
[2024-02-11 08:51] LABS: PCR FLU A Negative PCR FLU A (Negative); PCR FLU B Negative PCR FLU B (Negative); SARS PCR* Negative SARS-CoV-2 (Negative)
== END 2024-02-11 09:44 | disposition home or self-care (01) ==
PROVIDERS: Emergency Provider Family Medicine; PCP Family Medicine
DX: R11.10 Vomiting, unspecified (principal); R19.7 Diarrhea, unspecified
CPT/HCPCS: 36415; 80048; 80076; 85025; 87631; 96374; 99283; 99284; J2405; J7030